=== PATIENT | female | born 1990 | race American Indian/Alaskan Native ===

== ENCOUNTER 2018-01-15 21:18 | Emergency (ER) | payer MEDICAID ==
[2018-01-15] MEDS ORDERED: ASPIRIN PO ONE (22:47)
[2018-01-15 23:14] LABS: Basophils # (Auto) 0.1 K/mm3 (0.0-0.1); Eosinophils # (Auto) 0.2 K/mm3 (0.0-0.4); Eosinophils % (Auto) 2.4 % (0.0-4.3); Hematocrit 42.5 % (30.3-42.9); Lymphocytes # (Auto) 4.5 K/mm3 (1.2-5.4); Lymphocytes % (Auto) 46.2 % (13.4-35.0); Mean Corpuscular HGB Conc 33 % (30-34); Mean Corpuscular Hemoglobin 31 pg (28-32); Mean Corpuscular Volume 94 fl (79-97); Monocytes # (Auto) 0.7 K/mm3 (0.0-0.8); Platelet Count 348 K/mm3 (140-440); Red Cell Distribution Width 13.1 % (13.2-15.2)
[2018-01-15 23:26] LABS: BUN/Creatinine Ratio 10; Blood Urea Nitrogen 9 mg/dL (7-17); Calcium 9.2 mg/dL (8.4-10.2); Hemolysis Index 40
--- NOTE | 2018-01-16 00:14 | Emergency Department Report ---
ED Chest Pain HPI - General Chief Complaint: Chest Pain Stated Complaint: CHEST PAIN UNDER LEFT BREAST Time Seen by Provider: 01/16/18 00:05 Source: patient, RN notes reviewed Mode of arrival: Ambulatory Limitations: No Limitations - History of Present Illness Initial Comments: Primary care DrPam: Dr. Macario Pacheco This is a 27-year-old female who is not known to this provider previously, but denies chronic medical conditions. She takes oral contraceptives. Patient is right-hand dominant, and presents to the ER with a complaint of left-sided breast and chest wall pain for the past week. The pain is sharp and it does not radiate to the back, arms or neck. There is no vomiting, diaphoresis. Patient denies shortness of breath with exertion per se, but indicates her pain worsens when she takes a deep breath, and worsens with coughing. She denies DVT, pulmonary embolus risk factors with the exception of oral contraceptives. She denies recurrence of strenuous physical activity or heavy lifting. She denies hematemesis, bright red blood per rectum. She reports that she is not today and that she has not delivered given within the past 2 months. MD Complaint: chest pain -: Gradual, days(s) Onset: during rest Pain Location: left chest Pain Radiation: none Severity: moderate Quality: tightness, aching Consistency: intermittent Improves With: rest Worsens With: inspiration, palpation, movement Aspirin use within the Past 7 Days: (0) No - Related Data On Oral Contraceptives: Yes Previous Rx's Medication Instructions Recorded Last Taken Type Acetaminophen [Tylenol Arthritis] 650 mg PO Q6HR PRN #30 tablet.er 01/16/18 Unknown Rx Ibuprofen [Motrin] 600 mg PO Q8H PRN #30 tablet 01/16/18 Unknown Rx Allergies Allergy/AdvReac Type Severity Reaction Status Date / Time No Known Allergies Allergy Verified 01/16/18 00:08 Heart Score - HEART Score History: Slightly suspicious EKG: Normal Age: < 45 Risk factors: No known risk factors Troponin: < normal limit HEART Score: 0 - Critical Actions Critical Actions: 0-3 pts:0.9-1.7%risk of adverse cardiac event.Candidate for discharge ED Review of Systems ROS: Stated complaint: CHEST PAIN UNDER LEFT BREAST Other details as noted in HPI Comment: All other systems reviewed and negative ED Past Medical Hx - Past Medical History Previous Medical History?: No - Surgical History Past Surgical History?: No - Social History Smoking Status: Former Smoker Substance Use Type: None - Medications Home Medications: Home Medications Medication Instructions Recorded Confirmed Last Taken Type Acetaminophen [Tylenol Arthritis] 650 mg PO Q6HR PRN #30 tablet.er 01/16/18 Unknown Rx Ibuprofen [Motrin] 600 mg PO Q8H PRN #30 tablet 01/16/18 Unknown Rx ED Physical Exam - General Limitations: No Limitations General appearance: alert, in no apparent distress - Head Head exam: Present: atraumatic, normocephalic - Eye Eye exam: Present: normal appearance, EOMI. Absent: nystagmus - ENT ENT exam: Present: normal exam, normal orophraynx, mucous membranes moist, normal external ear exam - Neck Neck exam: Present: normal inspection, full ROM. Absent: tenderness, meningismus - Respiratory Respiratory exam: Present: normal lung sounds bilaterally (bilateral breasts are nontender, and demonstrate no redness, pus, streaking or vesicles. Chaperoned by ER clinical interviewer Mckenna Rowell), chest wall tenderness. Absent: respiratory distress, wheezes, rales, rhonchi, stridor - Cardiovascular Cardiovascular Exam: Present: regular rate, normal rhythm, normal heart sounds. Absent: bradycardia, tachycardia, irregular rhythm, systolic murmur, diastolic murmur, rubs, gallop - GI/Abdominal GI/Abdominal exam: Present: soft, normal bowel sounds. Absent: distended, tenderness, guarding, rebound, rigid, pulsatile mass - Extremities Exam Extremities exam: Present: normal inspection, full ROM, normal capillary refill , other (2+ pulses noted in the bilateral upper, lower extremities. Compartments soft. No long bony tenderness. The pelvis is stable.). Absent: tenderness, pedal edema, joint swelling, calf tenderness - Back Exam Back exam: Present: normal inspection, full ROM. Absent: tenderness, CVA tenderness (R), paraspinal tenderness, vertebral tenderness - Neurological Exam Neurological exam: Present: alert, oriented X3, CN II-XII intact, normal gait, other (Extraocular movements intact. Tongue midline. No facial droop. Facial sensation intact to light touch in the V1, V2, V3 distribution bilaterally. 5 and 5 strength in 4 extremities.. Sensation is intact to light touch in 4 extremities.). Absent: motor sensory deficit - Psychiatric Psychiatric exam: Present: normal affect, normal mood - Skin Skin exam: Present: warm, dry, intact, normal color. Absent: rash ED Course Vital Signs 01/15/18 01/16/18 01/16/18 22:10 00:39 00:45 Temperature 98.6 F Pulse Rate 97 H 79 Respiratory 14 16 Rate Blood Pressure 123/75 109/68 O2 Sat by Pulse 100 99 100 Oximetry 01/16/18 01/16/18 01/16/18 01:01 01:15 01:31 Temperature Pulse Rate 73 71 76 Respiratory 18 19 16 Rate Blood Pressure 120/52 115/59 106/53 O2 Sat by Pulse 100 100 100 Oximetry 01/16/18 01/16/18 01/16/18 01:45 02:01 02:15 Temperature Pulse Rate 95 H 80 70 Respiratory 23 15 17 Rate Blood Pressure 106/53 42/25 112/55 O2 Sat by Pulse 100 100 100 Oximetry 01/16/18 01/16/18 02:43 02:45 Temperature Pulse Rate 98 H 89 Respiratory 26 H 24 Rate Blood Pressure 112/55 136/52 O2 Sat by Pulse 100 Oximetry - Reevaluation(s) Reevaluation #1: 01/16/18 01:38 D-dimer is elevated. CT scan of the chest was ordered. Reevaluation #2: 01/16/18 03:07 Reassessed. Patient feels improved. CT scan of the chest was negative for acute disease. Patient will be discharged at this time. Return precautions are reviewed. CARLOS score - Carlos Score Age > 65: (0) No Aspirin use within the Past 7 Days: (0) No 3 or more CAD Risk Factors: (0) No 2 or more Angina events in past 24 hrs: (0) No Known CAD with more than 50% Stenosis: (0) No Elevated Cardiac Markers: (0) No ST Deviation Greater than 0.5mm: (0) No CARLOS Score: 0 ED Medical Decision Making - Lab Data Result diagrams: 01/15/18 22:59 01/15/18 22:59 Lab Results 01/15/18 01/15/18 01/15/18 Range/Units 22:59 22:59 22:59 WBC 9.8 (4.5-11.0) K/mm3 RBC 4.50 (3.65-5.03) M/mm3 Hgb 14.0 (10.1-14.3) gm/dl Hct 42.5 (30.3-42.9) % MCV 94 (79-97) fl MCH 31 (28-32) pg MCHC 33 (30-34) % RDW 13.1 L (13.2-15.2) % Plt Count 348 (140-440) K/mm3 Lymph % (Auto) 46.2 H (13.4-35.0) % Henry % (Auto) 7.0 (0.0-7.3) % Eos % (Auto) 2.4 (0.0-4.3) % Baso % (Auto) 1.0 (0.0-1.8) % Lymph # 4.5 (1.2-5.4) K/mm3 Henry # 0.7 (0.0-0.8) K/mm3 Eos # 0.2 (0.0-0.4) K/mm3 Baso # 0.1 (0.0-0.1) K/mm3 Seg Neutrophils % 43.4 (40.0-70.0) % Seg Neutrophils # 4.3 (1.8-7.7) K/mm3 Sodium 139 (137-145) mmol/L Potassium 4.0 (3.6-5.0) mmol/L Chloride 105.3 (98-107) mmol/L Carbon Dioxide 22 (22-30) mmol/L Anion Gap 16 mmol/L BUN 9 (7-17) mg/dL Creatinine 0.9 (0.7-1.2) mg/dL Estimated GFR > 60 ml/min BUN/Creatinine Ratio 10 % Glucose 101 H (65-100) mg/dL Calcium 9.2 (8.4-10.2) mg/dL Troponin T < 0.010 (0.00-0.029) ng/mL HCG, Qual Negative (Negative) - EKG Data -: EKG Interpreted by Me EKG shows normal: sinus rhythm, axis, intervals, QRS complexes, ST-T waves - EKG Data When compared to previous EKG there are: previous EKG unavailable 01/16/18 00:45 EKG #1 shows sinus, 90 bpm, motion artifact, normal axis, normal intervals, questionable right bundle branch block versus juvenile T-wave inversion, this EKG is not a STEMI. EKG #2 is unremarkable, resolution of incomplete right bundle and V2, motion artifact is again noted, EKG #2 is not a STEMI - Radiology Data Radiology results: image reviewed interpreted by me: X-ray the chest is negative for acute disease - Medical Decision Making Differential diagnosis, including but not limited to: Costochondritis, pleuritis , pneumonia, pericarditis, myocarditis, pulmonary embolus, acute coronary syndrome Assessment and plan: 27-year-old female with reproducible chest wall pain, low risk by heart score, low risk by CARLOS score, low risk for pulmonary embolus, only risk factor is oral contraceptives. X-ray chest is unremarkable. Myocarditis, pericarditis are unlikely given lack of tachycardia, lack of fever , and negative troponin. We will treat the patient's pain with oral medication as per her request, and send a d-dimer to risk stratify for pulmonary embolus. Critical care attestation.: If time is entered above; I have spent that time in minutes in the direct care of this critically ill patient, excluding procedure time. ED Disposition Clinical Impression: Chest wall pain Disposition: - TO HOME OR SELFCARE Is pt being admited?: No Does the pt Need Aspirin: No Condition: Stable Instructions: Chest Pain (ED), Costochondritis (ED) Additional Instructions: Take the pain medications as needed/directed. Follow-up with a primary care doctor or packaging assembler within the next 7 days. Return to the ER right away with new pain, worsened pain, migration of pain, projectile vomiting, change in mental status, confusion, inability to tolerate liquid feeds. Referrals: [facility] [Provider Group] - 3-5 Days [facility] [Provider Group] - 3-5 Days [facility] [Provider Group] - 3-5 Days
--- NOTE | 2018-01-16 00:56 | XRay Report ---
FINAL REPORT EXAM: XR CHEST ROUTINE 2V HISTORY: cp TECHNIQUE: PA and lateral views of the chest were submitted. FINDINGS: The heart size and mediastinum appear normal. The lungs are clear. Pleural fluid is not seen. The skeletal structures appear well maintained. IMPRESSION: No acute cardiopulmonary process.
[2018-01-16] MEDS ORDERED: MOTRIN PO ONE (01:10)
[2018-01-16] MEDS ORDERED: TYLENOL PO ONE (01:10)
[2018-01-16] MEDS ORDERED: NACL 0.9% 1000 ML 1,000 ML IV ONE (01:38)
--- NOTE | 2018-01-16 03:04 | Cat Scan Report ---
FINAL REPORT EXAM: CT ANGIO CHEST HISTORY: cp dyspnea TECHNIQUE: A CT angiogram of the chest was performed following the intravenous injection of 100 cc of Omnipaque 350. Rotational, sagittal, and coronal MIP reconstructions were reviewed. FINDINGS: There is no evidence of pulmonary embolus or aortic dissection. The thoracic aorta is normal in configuration. The heart size is normal. Pericardial fluid is not seen. There is no evidence of adenopathy. The lungs are clear. Pleural fluid is not seen. At the thoracic inlet the thyroid gland appears normal. In the upper abdomen the adrenal glands appear normal. The skeletal structures are well-maintained. IMPRESSION: No evidence of pulmonary embolus, aortic dissection, or vascular congestion. No acute process in the chest
[2018-01-16 03:58] VITALS: BP 139/61
== END 2018-01-16 03:58 | disposition home or self-care (01) ==
LOC: ED 21:18
DX: R07.89 Other chest pain (principal); Z87.891 Personal history of nicotine dependence
CPT/HCPCS: 36415; 71046; 71275; 80048; 82550; 84484; 84703; 85025; 85379; 93005; 93010; 99284; J7030; Q9967